=== PATIENT | female | born 1995 | race Caucasian/White ===

== ENCOUNTER 2020-07-06 06:29 | Observation (INO) ==
[2020-07-06 08:18] VITALS: BMI 29.4
[2020-07-06] MEDS: D5 1/2 NS 1000 ML 1,000 ML IV SCH ×2 (09:13→19:34)
[2020-07-06] MEDS: ZOSYN VIAL 3.375 GRAMS 3.375 G in NS 100 ML IV + SPIKE MINIBAG* 100 ML IV SCH ×2 (09:13→17:10)
[2020-07-06] MEDS ORDERED: BACTROBAN TOPICAL OINT ONE (10:12)
[2020-07-06] MEDS ORDERED: LR 1000 ML IV 1,000 ML IV ONE (10:38)
[2020-07-06] MEDS ORDERED: ANCEF 1 GRAM IV PREMIX* 0 G/0 ML BAG IV ONE (10:38)
[2020-07-06] MEDS ORDERED: FENTANYL INJ 250 mcg ONE (10:41)
[2020-07-06] MEDS ORDERED: DIPRIVAN VIAL ONE (10:45)
[2020-07-06] MEDS ORDERED: NORCURON INJ 10 MG VIAL ONE (10:45)
[2020-07-06] MEDS ORDERED: VERSED ONE (10:45)
[2020-07-06] MEDS ORDERED: TORADOL 30 MG VIAL ONE (10:45)
[2020-07-06] MEDS ORDERED: SUPRANE ONE (10:45)
[2020-07-06] MEDS ORDERED: QUELICIN (OR ANECTINE) ONE (10:45)
[2020-07-06] MEDS ORDERED: NEOSTIGMINE INJ ONE (10:45)
[2020-07-06] MEDS ORDERED: ROBINUL ONE (10:45)
[2020-07-06] MEDS ORDERED: PHENERGAN INJ 25 MG IM PRN (12:09)
[2020-07-06] MEDS ORDERED: BENADRYL INJ 50 MG VIAL IVP PRN (12:09)
[2020-07-06] MEDS ORDERED: REGLAN INJ 10 MG VIAL IVP PRN (12:09)
[2020-07-06] MEDS ORDERED: ZOFRAN INJ 4 MG VIAL IVP PRN (12:09)
[2020-07-06] MEDS ORDERED: DILAUDID INJ IVP PRN ×2 (12:09→12:16)
[2020-07-06] MEDS ORDERED: ZOFRAN INJ 4 MG VIAL ONE (13:06)
[2020-07-06] MEDS: ZOFRAN INJ 4 MG VIAL IVP PRN (13:10)
[2020-07-07] MEDS: D5 1/2 NS 1000 ML 1,000 ML IV SCH ×2 (01:26→09:16)
[2020-07-07] MEDS: ZOSYN VIAL 3.375 GRAMS 3.375 G in NS 100 ML IV + SPIKE MINIBAG* 100 ML IV SCH (01:27)
[2020-07-07] MEDS: DEMEROL INJ IVP PRN ×2 (04:12→08:48)
[2020-07-07] MEDS: ZOFRAN INJ 4 MG VIAL IVP PRN ×2 (04:13→09:12)
[2020-07-07 06:27] LABS: BASOPHILS % (AUTO) 0.1 % (0.2-1.0); EOSINOPHILS % (AUTO) 0.3 % (0.9-2.9); HEMATOCRIT 34.5 % (36.0-47.0); HEMOGLOBIN 11.8 g/dL (12.0-16.0); LYMPHOCYTES # (AUTO) 3.4 X10^3/uL (1.3-2.9); LYMPHOCYTES % (AUTO) 31.7 % (21.0-51.0); MEAN CORPUSCULAR HEMOGLOBIN 31.4 pg (27.0-34.0); MEAN CORPUSCULAR HGB CONC 34.2 g/dL (33.0-35.0); MEAN CORPUSCULAR VOLUME 91.8 fL (80.0-100.0); MEAN PLATELET VOLUME 8.7 fL (7.4-11.0); MONOCYTES # (AUTO) 0.7 x10^3/uL (0.3-0.8); MONOCYTES % (AUTO) 6.6 % (0.0-13.0); NEUTROPHILS # (AUTO) 6.6 x10^3/uL (2.2-4.8); NEUTROPHILS % (AUTO) 61.3 % (42.0-75.0); PLATELET COUNT 265 X10^3/uL (150.0-450.0); RED BLOOD COUNT 3.76 X10^6/uL (3.5-5.4); RED CELL DISTRIBUTION WIDTH 12.7 % (11.6-16.5); WHITE BLOOD COUNT 10.8 X10^3/uL (3.6-10.0)
[2020-07-07 06:42] LABS: ALANINE AMINOTRANSFERASE 16 Units/L (12-78); ALKALINE PHOSPHATASE 61 Units/L (46-116); ASPARTATE AMINO TRANSFERASE 11 Units/L (15-37); BLOOD UREA NITROGEN 12 mg/dL (7-18); CALCIUM 8.3 mg/dL (8.5-10.1); CARBON DIOXIDE 29.1 mmol/L (21-32); CHLORIDE 105 mmol/L (98-107); COR CA(FOR HYPOALB) 9.1 mg/dL (8.5-10.1); COR NA(FOR HYPERGLY) 138 mmol/L (136-145); CREATININE 0.62 mg/dL (0.55-1.02); SODIUM 138 mmol/L (136-145); eGFR NON BLACK RACES > 60 (>60)
[2020-07-07 09:15] VITALS: BP 121/62
[2020-07-07] MEDS ORDERED: ZOSYN VIAL 3.375 GRAMS 3.375 G in NS 100 ML IV + SPIKE MINIBAG* 100 ML IV SCH (14:00)
== END 2020-07-07 10:30 | disposition home or self-care (01) ==
LOC: MED/SURG
PROVIDERS: ADMIT Surgery; ATTEND Surgery
PROC: APPYLAP (ICD-10-PCS; 2020-07-06 10:45)
DX: R10.84 Generalized abdominal pain; K35.890 Other acute appendicitis without perforation or gangrene; N83.291 Other ovarian cyst, right side